=== PATIENT | female | born 1990 | race African-American/Black ===

== ENCOUNTER 2023-05-06 04:31 | Inpatient (IN) | payer BC ==
[2023-05-02 11:33] VITALS: BMI 27.8
[2023-05-06] MEDS ORDERED: PHENAZOPYRIDINE HCL 100 MG TABLET (FP) PO ONE (07:01)
[2023-05-06] MEDS ORDERED: ACETAMINOPHEN 1000 MG/100 ML BAG IVPB ONE (07:01)
[2023-05-06] MEDS ORDERED: LIDOCAINE HCL/PF 2% SDV 5ML VIAL ONE (07:12)
[2023-05-06] MEDS ORDERED: KETOROLAC TROMETHAMINE 30 MG/1 ML VIAL ONE (07:12)
[2023-05-06] MEDS ORDERED: ceFAZolin SODIUM 1 GM VIAL ONE (07:12)
[2023-05-06] MEDS ORDERED: DEXAMETHASONE SOD PHOSPHATE 4 MG/1 ML VIAL ONE (07:12)
[2023-05-06] MEDS ORDERED: SODIUM CHLORIDE 0.9% P/F 10 ML VIAL IJ ONE ×2 (07:12→08:10)
[2023-05-06] MEDS ORDERED: ONDANSETRON 4 MG/2 ML VIAL ONE (07:12)
[2023-05-06] MEDS ORDERED: PROPOFOL 40 ML ONE (07:13)
[2023-05-06] MEDS ORDERED: FENTANYL CITRATE/PF 50 MCG/ML VIAL ONE ×2 (07:14→09:43)
[2023-05-06] MEDS ORDERED: SUCCINYLCHOLINE CHLORIDE 200 MG/10 ML SYRINGE ONE (07:14)
[2023-05-06] MEDS ORDERED: ROCURONIUM BROMIDE 50 MG/5 ML SYRINGE ONE ×2 (07:15→09:09)
[2023-05-06] MEDS ORDERED: MIDAZOLAM HCL 2 MG/2 ML SINGLE DOSE VIAL ONE (07:15)
[2023-05-06] MEDS ORDERED: VASOPRESSIN 20 UNITS/ML VIAL IV ONE (07:31)
[2023-05-06] MEDS ORDERED: HEPARIN NA (PORCINE) 5,000 UNITS/ML 1ML VIAL ONE (07:31)
[2023-05-06] MEDS ORDERED: ALBUTEROL SO4 HFA INHALER IH ONE (07:34)
[2023-05-06] MEDS ORDERED: HYDROmorphone HCl 2 MG/ML VIAL ONE ×2 (07:34→10:06)
[2023-05-06] MEDS ORDERED: ceFAZolin SODIUM 1 GM VIAL IVPB ONE (08:00)
[2023-05-06] MEDS ORDERED: PROPOFOL 60 ML ONE (08:03)
[2023-05-06] MEDS ORDERED: MAGNESIUM SULF 50% (8.12 MEQ/2 ML-1 GM VIAL) ONE (08:06)
[2023-05-06] MEDS ORDERED: SUGAMMADEX SODIUM 200 MG/2 ML VIAL ONE (08:20)
[2023-05-06] MEDS ORDERED: BISACODYL 5 MG TABLET.DR (FP) PO PRN (09:45)
[2023-05-06] MEDS ORDERED: DOCUSATE SODIUM 100 MG CAPSULE (FP) PO PRN (09:45)
[2023-05-06] MEDS: ACETAMINOPHEN 325 MG TABLET (FP) PO SCH ×3 (09:45→21:12)
[2023-05-06] MEDS ORDERED: LACTATED RINGERS SOLUTION 1,000 ML IV SCH (09:45)
[2023-05-06] MEDS ORDERED: ONDANSETRON 4 MG/2 ML VIAL IVPUSH PRN (09:45)
[2023-05-06] MEDS ORDERED: HYDROmorphone *PCA* 10MG/50ML DISP.SYRIN PCA SCH (09:45)
[2023-05-06] MEDS ORDERED: oxyCODONE HCL 5 MG TABLET PO PRN ×2 (09:45)
[2023-05-06] MEDS ORDERED: IBUPROFEN 800 MG/8 ML IJ IVPB PRN (09:45)
[2023-05-06] MEDS ORDERED: ZOLPIDEM TARTRATE 5 MG TABLET PO PRN (09:50)
[2023-05-06] MEDS ORDERED: HYDROmorphone HCl 2 MG/ML VIAL IVPUSH ONE (12:48)
[2023-05-06] MEDS ORDERED: CEFAZOLIN 1 GM in DEXTROSE 5%-WATER - 50 ML IVPB SCH (15:00)
[2023-05-06 18:52] LABS: HEMATOCRIT 36.6 % (32.4-45.2); MCH 28.6 pg (25.7-33.7); MCHC 32.8 g/dl (32.0-36.0); MEAN CELL VOLUME 87.2 fl (80-96); PLATELET COUNT 265 10^3/uL (134-434); RBC 4.19 M/mm3 (3.60-5.2); WHITE BLOOD COUNT 13.8 K/mm3 (4.0-10.0)
[2023-05-06 19:11] LABS: POTASSIUM 4.5 mmol/L (3.5-5.1)
[2023-05-06 19:13] LABS: BLOOD UREA NITROGEN 7.5 mg/dL (7-18); CALCIUM 8.6 mg/dL (8.5-10.1)
[2023-05-06 19:17] LABS: CREATININE 0.9 mg/dL (0.55-1.3)
[2023-05-06] MEDS: SIMETHICONE 80 MG TAB.CHEW (FP) PO PRN (21:12)
[2023-05-06] MEDS: CEFAZOLIN 1 GM in DEXTROSE 5%-WATER - 50 ML IVPB SCH (22:49)
[2023-05-07] MEDS: ACETAMINOPHEN 325 MG TABLET (FP) PO SCH ×4 (04:53→21:47)
[2023-05-07] MEDS: CEFAZOLIN 1 GM in DEXTROSE 5%-WATER - 50 ML IVPB SCH (06:14)
[2023-05-07 07:35] LABS: HEMATOCRIT 31.2 % (32.4-45.2); HEMOGLOBIN 10.5 GM/dL (10.7-15.3); MCH 29.7 pg (25.7-33.7); MCHC 33.8 g/dl (32.0-36.0); MEAN CELL VOLUME 87.7 fl (80-96); MEAN PLT VOLUME 8.3 fl (7.5-11.1); PLATELET COUNT 229 10^3/uL (134-434); RBC 3.55 M/mm3 (3.60-5.2); RDW 12.9 % (11.6-15.6); WHITE BLOOD COUNT 12.4 K/mm3 (4.0-10.0)
[2023-05-07 07:49] LABS: POTASSIUM 3.9 mmol/L (3.5-5.1)
[2023-05-07 07:53] LABS: CALCIUM 8.2 mg/dL (8.5-10.1)
[2023-05-07 07:54] LABS: BLOOD UREA NITROGEN 8.9 mg/dL (7-18)
[2023-05-07 07:57] LABS: CREATININE 0.7 mg/dL (0.55-1.3)
[2023-05-07] MEDS ORDERED: IBUPROFEN 400 MG TABLET (FP) PO PRN (10:10)
[2023-05-07] MEDS: ENOXAPARIN NA (PORCINE) 40 MG/0.4 ML DISP.SYRIN SQ SCH (10:45)
[2023-05-07] MEDS: SIMETHICONE 80 MG TAB.CHEW (FP) PO PRN (17:59)
[2023-05-07] MEDS: oxyCODONE HCL 5 MG TABLET PO PRN (19:26)
[2023-05-08] MEDS: oxyCODONE HCL 5 MG TABLET PO PRN (02:56)
[2023-05-08] MEDS: ACETAMINOPHEN 325 MG TABLET (FP) PO SCH ×2 (03:52→09:15)
[2023-05-08 06:15] VITALS: RESP 18; TEMP 98.4
[2023-05-08 08:36] LABS: BASO % 0.4 % (0-2.0); EOS % 1.3 % (0-4.5); HEMATOCRIT 33.5 % (32.4-45.2); HEMOGLOBIN 10.9 GM/dL (10.7-15.3); LYMPH % 43.8 % (8-40); MCHC 32.6 g/dl (32.0-36.0); MEAN CELL VOLUME 88.8 fl (80-96); MEAN PLT VOLUME 8.5 fl (7.5-11.1); MONO % 7.7 % (3.8-10.2); NEUT % 46.8 % (42.8-82.8); PLATELET COUNT 228 10^3/uL (134-434); RBC 3.77 M/mm3 (3.60-5.2); RDW 12.9 % (11.6-15.6)
[2023-05-08 08:55] LABS: POTASSIUM 4.2 mmol/L (3.5-5.1)
[2023-05-08 08:57] LABS: CALCIUM 8.3 mg/dL (8.5-10.1)
[2023-05-08 08:58] LABS: BLOOD UREA NITROGEN 12.1 mg/dL (7-18)
[2023-05-08 09:01] LABS: CREATININE 0.7 mg/dL (0.55-1.3)
[2023-05-08] MEDS: ENOXAPARIN NA (PORCINE) 40 MG/0.4 ML DISP.SYRIN SQ SCH (09:15)
[2023-05-08 09:29] VITALS: BP 107/62; PULSE 58
== END 2023-05-08 11:15 | disposition home or self-care (01) | DRG 743 ==
LOC: JASUSAT 04:31 → EDSTATUS 08:00 → J3W 12:34 → JASUSAT 12:44 → J3W 12:44
PROVIDERS: ADMIT Obstetrics & Gynecology; ATTEND Obstetrics & Gynecology
PROC: 0UB90ZZ Excision of Uterus, Open Approach (ICD-10-PCS; principal; 2023-05-06 07:30)
PROC: 0UB10ZZ Excision of Left Ovary, Open Approach (ICD-10-PCS; 2023-05-06 07:30)
PROC: 0UT50ZZ Resection of Right Fallopian Tube, Open Approach (ICD-10-PCS; 2023-05-06 07:30)
DX: D25.0 Submucous leiomyoma of uterus (principal); D25.1 Intramural leiomyoma of uterus; N84.1 Polyp of cervix uteri; N83.202 Unspecified ovarian cyst, left side; N83.8 Other noninflammatory disorders of ovary, fallopian tube and broad ligament
CPT/HCPCS: 36415; 80048; 81025; 85025; 85027; 86850; 86900; 86901; 88304-TC; 88305-TC; 94010; 94760; J1644